=== PATIENT | male | born 1955 | race Caucasian/White ===

== ENCOUNTER → 2016-09-09 | Outpatient (CLI) | payer BC ==
[~2016-09-09] MED LIST: ASPI325T39 PO; CYAN100T6 PO; IBUP-1050 PO; MULT-506 PO; OMEG12006 PO; ZNTT/150 PO
[2016-09-09 10:47] LABS: BASO % 0.2 %; BASO ABS # 0.01 K/uL (0-0.2); COMPLETE YES; EOS % 3.9 %; HEMATOCRIT 47.1 % (42-52); IG% 0.2 %; LYMPH % 30.9 %; LYMPH ABS # 1.74 K/uL (1.2-3.4); MEAN CELL VOLUME 86.9 fL (80-100); MEAN CORPUSCULAR HEMOGLOBIN 29.5 pg (25-34); MONO % 9.9 %; NEUT % 54.9 %; PLATELET COUNT 226 K/uL (130-400); RED BLOOD COUNT 5.42 M/uL (4.7-6.1); WHITE BLOOD COUNT 5.64 K/uL (4.8-10.8)
[2016-09-09 11:19] LABS: ALT/SGPT 34 U/L (12-78); BLOOD UREA NITROGEN 20 mg/dl (7-18); BUN/CREATININE RATIO 17.9 (10-20); CALCIUM 8.7 mg/dl (8.5-10.1); CARBON DIOXIDE 31 mmol/L (21-32); CHLORIDE 106 mmol/L (98-107); CHOLESTEROL 191 mg/dl (0-200); GLUCOSE 98 mg/dl (70-99); POTASSIUM 4.2 mmol/L (3.5-5.1); SODIUM 143 mmol/L (136-145); TRIGLYCERIDES 81 mg/dl (0-150); VERY LOW DENSITY LIPOPROT CALC 16 mg/dl
[2016-09-09 11:24] LABS: ALB/GLOB RATIO 0.9 (0.9-2); ALKALINE PHOSPHATASE 75 U/L (45-117); AST/SGOT 18 U/L (15-37); CHOLESTEROL/HDL RATIO 4.9; HDL CHOLESTEROL 39 mg/dl; LDL CHOLESTEROL CALCULATED 136 mg/dl; PROSTATE SPECIFIC ANTIGEN < 0.010 ng/ml (0.000-4.000)
== END | disposition home or self-care (01) ==
LOC: C.LABBC 08:46
PROVIDERS: ATTEND Internal Medicine
DX: D36.9 Benign neoplasm, unspecified site (principal)

== ENCOUNTER → 2016-09-19 | Outpatient (CLI) | payer BC ==
--- NOTE | 2016-09-19 08:24 | DIAGNOSTIC IMAGING REPORT ---
DOUBLE CONTRAST UPPER GI SERIES CLINICAL HISTORY: Eructation. COMPARISON STUDY: No priors. TECHNIQUE: A standard air contrast upper GI series was performed. Spot images of the esophagus and stomach were obtained in multiple obliquities both upright and prone. FINDINGS: The patient swallowed barium without difficulty. The esophagus is structurally normal without evidence of intrinsic or extrinsic mass. The esophageal mucosal pattern is normal. No gastroesophageal reflux was elicited by having the patient perform the Valsalva maneuver. The gastroesophageal junction distends normally. A small hiatal hernia is noted. The stomach is otherwise normal in configuration and demonstrates normal distensibility. No mass or ulceration is identified. There was no evidence of gastritis. The duodenal bulb and sweep are unremarkable. Fluoroscopy time: 2.9 minutes. Fluoroscopic images: 20 IMPRESSION: Small hiatal hernia. Otherwise normal upper GI series. Electronically signed by: Prasanna Emery M.D. 09/19/2016 8:22 AM Dictated Date/Time: 09/19/2016 8:21 AM
== END | disposition home or self-care (01) ==
LOC: C.RAD 07:37
PROVIDERS: ATTEND Internal Medicine
DX: R14.2 Eructation (principal); K44.9 Diaphragmatic hernia without obstruction or gangrene

== ENCOUNTER 2017-04-26 16:10 | Emergency (ER) | payer BC, OTHER ==
[~2017-04-26] VITALS: Ht 182.9 cm; Wt 83.4 kg
[~2017-04-26 16:10] MED LIST changes: -ASPI325T39 PO; -IBUP-1050 PO; -ZNTT/150 PO
[2017-04-26 16:25] VITALS: TEMP 36.9
[2017-04-26] MEDS ORDERED: IBUP-1050 PO (16:49)
[2017-04-26] MEDS ORDERED: ASPI325T39 PO (16:49)
[2017-04-26] MEDS ORDERED: ZNTT/150 PO (16:49)
[2017-04-26 16:56] VITALS: Ht 182.9 cm; Wt 83.4 kg
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
[2017-04-26 17:04] LABS: BASO % 0.1 %; BASO ABS # 0.01 K/uL (0-0.2); COMPLETE YES; EOS % 2.8 %; HEMATOCRIT 42.9 % (42-52); IG% 0.3 %; LYMPH % 16.2 %; LYMPH ABS # 1.23 K/uL (1.2-3.4); MEAN CELL VOLUME 88.1 fL (80-100); MEAN CORPUSCULAR HGB CONC 32.9 g/dl (32-36); MEAN PLATELET VOLUME 9.5 fL (7.4-10.4); MONO % 9.6 %; PLATELET COUNT 243 K/uL (130-400); RED BLOOD COUNT 4.87 M/uL (4.7-6.1); WHITE BLOOD COUNT 7.61 K/uL (4.8-10.8)
[2017-04-26 17:11] VITALS: O2SAT 94
[2017-04-26 17:14] LABS: PARTIAL THROMBOPLASTIN RATIO 1.2; PROTHROMBIN TIME (PATIENT) 10.4 SECONDS (9.0-12.0)
--- NOTE | 2017-04-26 17:19 | DIAGNOSTIC IMAGING REPORT ---
CHEST ONE VIEW PORTABLE HISTORY: EVALUATE RESPIRATORY DISTRESS.DYSPNEA COMPARISON: Chest 02/21/2006. FINDINGS: The lungs are clear. Cardiac silhouette is normal in size. No pleural effusions. No pneumothorax. IMPRESSION: No acute process. Electronically signed by: Lincoln Wild M.D. 04/26/2017 5:18 PM Dictated Date/Time: 04/26/2017 5:16 PM
[2017-04-26 17:24] LABS: ALT/SGPT 31 U/L (12-78); AST/SGOT 19 U/L (15-37); BLOOD UREA NITROGEN 18 mg/dl (7-18); BUN/CREATININE RATIO 19.1 (10-20); CALCIUM 8.5 mg/dl (8.5-10.1); CARBON DIOXIDE 28 mmol/L (21-32); CHLORIDE 106 mmol/L (98-107); CREATININE 0.96 mg/dl (0.60-1.40); GLUCOSE 86 mg/dl (70-99); POTASSIUM 3.6 mmol/L (3.5-5.1); SODIUM 141 mmol/L (136-145)
[2017-04-26 17:26] LABS: ISTAT HEMOGLOBIN 14.6 g/dl (14.0-18.0); ISTAT IONIZED CALCIUM 1.16 mmol/l (1.12-1.32)
[2017-04-26 17:29] LABS: ALB/GLOB RATIO 0.9 (0.9-2); ALKALINE PHOSPHATASE 79 U/L (45-117)
--- NOTE | 2017-04-26 17:37 | DIAGNOSTIC IMAGING REPORT ---
HEAD WITHOUT CONTRAST (CT) CLINICAL HISTORY: 61 years-old Male with vertigo. Acute vertigo. TECHNIQUE: Multiple axial CT images of the head were obtained without contrast. A dose lowering technique was utilized adhering to the principles of ALARA. COMPARISON: None. FINDINGS: No acute intracranial hemorrhage, midline shift, mass, large territorial ischemia or abnormal extra-axial collection. 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 Vascular calcifications are seen at the level of the skull base. The calvarium is intact. The paranasal sinuses, mastoid air cells, and middle ear cavities are clear. IMPRESSION: No acute intracranial abnormality. The above report was generated using voice recognition software. It may contain grammatical, syntax or spelling errors. Electronically signed by: Tono Donovan M.D. 04/26/2017 5:36 PM Dictated Date/Time: 04/26/2017 5:34 PM
[2017-04-26] MEDS ORDERED: OPTIRAY 320 IV PRN (17:45)
--- NOTE | 2017-04-26 17:46 | DIAGNOSTIC IMAGING REPORT ---
(CHEST FOR PE) ANGIO WITH CT DOSE: 1151.25 mGy.cm HISTORY: 61 years-old Male presents with extensive deep venous thrombosis on the right. Concern for possible pulmonary thromboembolic disease. TECHNIQUE: Multiple CTA images of the chest were obtained after the intravenous administration of 89 ml Optiray 320. Coronal and sagittal MIPS were obtained from the axial data set and were submitted for review. A dose lowering technique was utilized adhering to the principles of ALARA. COMPARISON: None available. FINDINGS: CTA: Heart is upper limits of normal in size without pericardial effusion. The thoracic aorta is not well opacified secondary to contrast bolus timing, however is unremarkable without dissection or aneurysm identified. The imaged proximal great vessels appear patent. Mild coronary arterial calcifications are noted. The pulmonary arterial tree is opacified to the level of the distal segmental branches. The subsegmental branches are not well evaluated secondary to contrast bolus timing and respiratory motion. No definite evidence of pulmonary thromboembolic disease. CT CHEST: Thyroid is homogeneous without dominant nodule identified. There is no pathologic adenopathy about the chest identified. There is mild biapical pleural-parenchymal scarring. No pneumothorax or pleural effusion. Mild dependent subsegmental bibasilar atelectasis. 9 mm thin-walled cyst is noted within the lingula. No suspicious pulmonary nodules or masses identified. The central airways are patent. No acute abnormality of the imaged upper abdomen identified. Colonic diverticulosis is partially imaged. Soft tissues are unremarkable. The bones appear intact. IMPRESSION: 1. No acute intrathoracic abnormality identified, specifically no acute aortic pathology or evidence of pulmonary thromboembolic disease. 2. No focal airspace consolidation or adenopathy. 3. Colonic diverticulosis. The above report was generated using voice recognition software. It may contain grammatical, syntax or spelling errors. Electronically signed by: Tono Donovan M.D. 04/26/2017 5:45 PM Dictated Date/Time: 04/26/2017 5:39 PM
[2017-04-26] MEDS ORDERED: ENOXAPARIN 120 MG/0.8 ML SYR SQ ONE (18:15)
[2017-04-26 18:33] VITALS: BP 136/70; PULSE 76; O2SAT 97
--- NOTE | 2017-04-26 18:35 | Pharmacy Progress Note ---
ED Pharmacist Counseling Note Date of Service: Apr 26, 2017. Patient with new onset (likely provoked) DVT I spent 20 minutes with the patient and his explaining options for therapeutic anticoagulation including the following: Warfarin/enoxaparin Apixaban Rivaroxaban Differences in cost, bleed risk, ease of bleeding reversal, monitoring, and food /drug interactions were discussed. Patient and elected to receive a one-time SQ dose of enoxaparin while in the ED and then follow-up with outpatient provider tomorrow to determine ongoing therapeutic anticoagulation. Dr. Torres prescribed enoxaparin 120 mg ( 1.5 mg/kg) so this will last 24 hours. Patient and acknowledged that they will need to see an outpatient provider tomorrow or must return to ED as only 24 hours of medication were administered/prescribed. I provided the patient with a co-pay card for rivaroxaban that may cover a 30 day supply. Encouraged them to determine what co-pay will be after 30 day supply as it may be large depending on insurance coverage. All of the patient's and his 's questions and concerns were addressed.
== END 2017-04-26 18:34 | disposition home or self-care (01) ==
LOC: C.EDB 16:11
DX: I82.4Z1 Acute embolism and thrombosis of unspecified deep veins of right distal lower extremity (principal); E78.5 Hyperlipidemia, unspecified; Z79.82 Long term (current) use of aspirin

== ENCOUNTER → 2017-04-26 | Outpatient (CLI) | payer BC ==
--- NOTE | 2017-04-26 15:07 | DIAGNOSTIC IMAGING REPORT ---
VENOUS DOPP LOWER EXT UNILAT CLINICAL HISTORY: 61 years-old Male presenting with R LEG PAIN/SWELLING. TECHNIQUE: Real-time grayscale and color and spectral Doppler ultrasound imaging of the veins of the right lower extremity was performed. Compression and augmentation were also utilized. COMPARISON: None. FINDINGS: Right: Common femoral vein: Patent. Femoral vein: Filling defect consistent with thrombus appears occlusive throughout the superficial femoral vein, expanding the vein inferiorly. Deep femoral vein: Patent. Greater saphenous vein: Patent. Popliteal vein: Filling defect consistent with thrombus in the popliteal vein, which expands the vein and is occlusive. Calf veins: Filling defects consistent with nonocclusive thrombus in the posterior tibial, peroneal, and one of 2 duplicated anterior tibial veins. Other: None. IMPRESSION: Extensive occlusive deep venous thrombosis extending to the level of the femoral vein superiorly as above. The report will be called/faxed according to standard departmental protocol. Electronically signed by: Vazquez Segovia M.D. 04/26/2017 3:05 PM Dictated Date/Time: 04/26/2017 3:03 PM
== END | disposition home or self-care (01) ==
LOC: C.ULTRBC 14:22
PROVIDERS: ATTEND Orthopaedic Surgery
DX: I82.4Z1 Acute embolism and thrombosis of unspecified deep veins of right distal lower extremity (principal)

== ENCOUNTER → 2017-04-27 | Outpatient (CLI) | payer BC ==
[~2017-04-27] MED LIST changes: +ASPI325T39 PO; +IBUP-1050 PO; +ZNTT/150 PO
== END | disposition home or self-care (01) ==
LOC: C.LABBC 11:53
PROVIDERS: ATTEND Internal Medicine
DX: I82.409 Acute embolism and thrombosis of unspecified deep veins of unspecified lower extremity (principal)

== ENCOUNTER → 2017-05-26 | Outpatient (CLI) | payer BC, OTHER ==
--- NOTE | 2017-05-26 12:07 | DIAGNOSTIC IMAGING REPORT ---
RIGHT LOWER EXTREMITY VENOUS DOPPLER HISTORY: HX OF DVT, RIGHT LEG SWELLING COMPARISON STUDY: Right leg venous Doppler 04/26/2017. FINDINGS: No significant change in the chronic occlusive thrombus seen within the right superficial femoral and popliteal veins. Broken flow within the posterior tibial and peroneal veins consistent with nonocclusive thrombus. This has improved. IMPRESSION: 1. No significant change in the chronic occlusive thrombus seen within the right superficial femoral and popliteal veins. 2. Improvement in the chronic nonocclusive thrombus within the calf veins. Electronically signed by: Lincoln Wild M.D. 05/26/2017 12:05 PM Dictated Date/Time: 05/26/2017 12:01 PM
== END | disposition home or self-care (01) ==
LOC: C.ULTR 11:21
PROVIDERS: ATTEND Internal Medicine
DX: Z86.718 Personal history of other venous thrombosis and embolism (principal); M79.89 Other specified soft tissue disorders

== ENCOUNTER → 2017-09-18 | Outpatient (CLI) | payer BC ==
[~2017-09-18] MED LIST changes: +RANI150T85 PO; -ZNTT/150 PO
[2017-09-18 10:41] LABS: BASO % 0.2 %; BASO ABS # 0.01 K/uL (0-0.2); EOS % 1.1 %; EOS ABS # 0.07 K/uL (0-0.5); HEMATOCRIT 47.6 % (42-52); HEMOGLOBIN 16.2 g/dL (14.0-18.0); IG# 0.01 K/uL (0.00-0.02); LYMPH % 25.8 %; LYMPH ABS # 1.63 K/uL (1.2-3.4); MEAN CELL VOLUME 86.9 fL (80-100); MEAN CORPUSCULAR HEMOGLOBIN 29.6 pg (25-34); MEAN PLATELET VOLUME 9.7 fL (7.4-10.4); MONO % 9.2 %; MONO ABS # 0.58 K/uL (0.11-0.59); NEUT % 63.5 %; NEUT ABS # 4.01 K/uL (1.4-6.5); PLATELET COUNT 224 K/uL (130-400); RED CELL DISTRIBUTION WIDTH CV 13.3 % (11.5-14.5); RED CELL DISTRIBUTION WIDTH SD 42.4 fL (36.4-46.3); WHITE BLOOD COUNT 6.31 K/uL (4.8-10.8)
[2017-09-18 11:00] LABS: ALBUMIN 3.6 gm/dl (3.4-5.0); ALT/SGPT 35 U/L (12-78); AST/SGOT 17 U/L (15-37); BLOOD UREA NITROGEN 18 mg/dl (7-18); CALCIUM 8.6 mg/dl (8.5-10.1); CARBON DIOXIDE 30 mmol/L (21-32); CHOLESTEROL 197 mg/dl (0-200); CREATININE 1.06 mg/dl (0.60-1.40); GLUCOSE 98 mg/dl (70-99); POTASSIUM 3.9 mmol/L (3.5-5.1); SODIUM 138 mmol/L (136-145)
[2017-09-18 11:05] LABS: ALKALINE PHOSPHATASE 72 U/L (45-117); LDL CHOLESTEROL CALCULATED 140 mg/dl; TOTAL PROTEIN 7.7 gm/dl (6.4-8.2)
== END | disposition home or self-care (01) ==
LOC: C.LABBC 08:20
PROVIDERS: ATTEND Internal Medicine
DX: Z00.00 Encounter for general adult medical examination without abnormal findings (principal); E78.5 Hyperlipidemia, unspecified; C61 Malignant neoplasm of prostate; M19.90 Unspecified osteoarthritis, unspecified site; D36.9 Benign neoplasm, unspecified site; K21.9 Gastro-esophageal reflux disease without esophagitis

== ENCOUNTER → 2017-09-24 | Outpatient (CLI) | payer BC ==
--- NOTE | 2017-09-24 12:40 | DIAGNOSTIC IMAGING REPORT ---
ULTRASOUND R VENOUS DOPP LOWER EXT UNILAT CLINICAL HISTORY: Right leg pain HISTORY OF DVT COMPARISON STUDY: 05/26/2017 FINDINGS: There is nonocclusive thrombus within the superficial femoral vein and popliteal vein and posterior tibial vein and peroneal vein. No thrombus is visualized within the common femoral vein. IMPRESSION: 1. Slight improvement in the extensive chronic right lower extremity DVT with persistent but now nonocclusive thrombus involving the superficial femoral vein and popliteal vein posterior tibial vein and peroneal vein. Electronically signed by: Dc Lamb M.D. 09/24/2017 12:39 PM Dictated Date/Time: 09/24/2017 12:35 PM
== END | disposition home or self-care (01) ==
LOC: C.ULTR 12:08
PROVIDERS: ATTEND Internal Medicine Hematology & Oncology
DX: I82.491 Acute embolism and thrombosis of other specified deep vein of right lower extremity (principal); I82.411 Acute embolism and thrombosis of right femoral vein; I82.431 Acute embolism and thrombosis of right popliteal vein

== ENCOUNTER → 2018-01-07 | Outpatient (CLI) | payer BC ==
--- NOTE | 2018-01-07 13:27 | DIAGNOSTIC IMAGING REPORT ---
VENOUS DOPP LOWER EXT UNILAT CLINICAL HISTORY: RT LE DVT pain. Edema. TECHNIQUE: Venous Doppler COMPARISON STUDY: 09/24/2017. FINDINGS: Similar exam compared to the prior study, although distribution of thrombus is perhaps somewhat diminished in geographic extent.. Nonocclusive thrombus is identified within the femoral pain, popliteal, posterior tibial, as well as peroneal veins. There are no new or interval findings. IMPRESSION: Nonocclusive thrombus within the right leg is considered slightly improved compared to the prior exam. The above report was generated using voice recognition software. It may contain grammatical, syntax or spelling errors. Electronically signed by: Jake Garcia M.D. 01/07/2018 1:26 PM Dictated Date/Time: 01/07/2018 1:24 PM
== END | disposition home or self-care (01) ==
LOC: C.ULTR 12:42
PROVIDERS: ATTEND Internal Medicine Hematology & Oncology
DX: I82.401 Acute embolism and thrombosis of unspecified deep veins of right lower extremity (principal)

== ENCOUNTER → 2018-01-15 | Outpatient (CLI) | payer BC ==
[2018-01-15 11:21] LABS: ALBUMIN 3.8 gm/dl (3.4-5.0); ALKALINE PHOSPHATASE 68 U/L (45-117); ALT/SGPT 43 U/L (12-78); AST/SGOT 21 U/L (15-37); BLOOD UREA NITROGEN 25 mg/dl (7-18); CALCIUM 8.9 mg/dl (8.5-10.1); CARBON DIOXIDE 31 mmol/L (21-32); CHOLESTEROL 118 mg/dl (0-200); CREATININE 1.06 mg/dl (0.60-1.40); GLUCOSE 100 mg/dl (70-99); LDL CHOLESTEROL CALCULATED 64 mg/dl; POTASSIUM 4.2 mmol/L (3.5-5.1); SODIUM 140 mmol/L (136-145); TOTAL PROTEIN 7.7 gm/dl (6.4-8.2)
== END | disposition home or self-care (01) ==
LOC: C.LABBC 08:02
PROVIDERS: ATTEND Internal Medicine
DX: E78.5 Hyperlipidemia, unspecified (principal)